=== PATIENT | female | born 1955 | race Caucasian/White ===

== ENCOUNTER 2024-01-26 15:33 | Emergency (ER) | payer MEDICARE, BC, SELFPAY ==
[2024-01-26 15:40] VITALS: BP 148/91
[2024-01-26 16:29] VITALS: BMI 29.6
--- NOTE | 2024-01-26 16:44 | EDRN ---
Ice applied to head. Lion Acosta HUNTING SALES LEADER in to see pt.
[2024-01-26 16:50] VITALS: BP 154/75
--- NOTE | 2024-01-26 16:51 | EDRN ---
Lion Acosta TAG METER OPERATOR in room and extensively cleansed wound w/ saline and is now stapling posterior head lac at this time. Pt to go to CT when stapling is done.
[2024-01-26 17:50] VITALS: BP 171/86
[2024-01-26] MEDS: ADACEL 0.5 ML IM (17:53)
--- NOTE | 2024-01-26 20:04 | ED.SKININJ ---
HPI-Injury
General
Chief Complaint: Head Injury
Source: patient
Exam Limitations: none
Time Seen by Provider: 01/26/24 16:02
Nursing documentation reviewed up to this point in time: agreed with
Travel History
Have you had any contact with someone who has COVID-19?: No
Do you have any symptoms of coronavirus? Fever > 100 degrees, chills, cough, shortness of breath, sore throat, loss of taste or smell, muscle aches, or headache?: No
History of Present Illness-Injury
Is this injury a work related problem?: No
Is pt an associate of [facility]?: No
Initial Injury comments:
Patient states she slipped on floor and fell. Hit back of head on granite surface. No LOC. Sustained lac to posterior scalp. Injury occurred jsut DESIGN MANAGER. Brought to ED by spouse for eval
Past History
Past History
ED Past Medical History: None
Review of Systems
Review of Systems
Allergies reviewed?: Yes
All Other Systems: ROS reviewed and negative except as documented in HPI and ROS
Constitutional: Reports no symptoms
EENT: Reports no symptoms
Respiratory: Reports no symptoms
Cardiac: Reports no symptoms
ABD/GI: Reports no symptoms
: Reports no symptoms
Musculoskeletal: Reports no symptoms
Skin: Reports other (Laceration to posterior scalp.)
Neurological: Reports headache
Psychiatric: Reports no symptoms
Skin Exam
Laceration
Posterior Scalp:
Length in cm: 3
Orientation: horizontal
Type of Laceration: simple
Any active bleeding?: low grade venous oozing
Distal skin color and temperature: normal-warm & good color
Normal distal neurovascular exam: Yes
Range of motion: full
Phy Exam
General Physical Exam
General Presentation: well appearing and no apparent distress
General age: appears stated age
General Skin: warm and dry
General Habitus: normal
General Mental: alert
Eye Exam
Eye Exam: EOMI and conjunctiva normal
Neurological Exam
Neurological Exam: alert, oriented x3, CN II-XII intact, no motor deficits, no sensory deficits and speech normal
Jaclyn Coma Scale
Eye Opening: Spontaneous
Verbal Response: Oriented
Motor Response: Obeys Commands
GCS Total Score: 15
Musculoskeletal Exam
Musculoskeletal Exam: full ROM and neuro vasc intact
Skin Exam
Skin Exam: normal color, warm/dry and no rash
Psychiatric Exam
Psychiatric Exam: normal mood/affect
Course
Orders/Labs/Results
Orders:
Orders
01/26/24 15:46
CT Cervical Spine W/o Iv Contr Urgent
Reason For Exam: fall
CT Head W/o Iv Contrast Urgent
Comment:
Reason For Exam: fall
01/26/24 17:34
Tetanus/Diphth/Acelpertussis [Adacel] 0.5 ml IM .ONCE ONE
Vital Signs
Initial and Last Documented VS:
Initial Vital Signs
Temp Pulse Resp BP Pulse Ox
97.9 F 67 16 148/91 98
01/26/24 15:40 01/26/24 15:40 01/26/24 15:40 01/26/24 15:40 01/26/24 15:40
Last Documented Vital Signs
Temp Pulse Resp BP Pulse Ox
97.9 F 65 16 171/86 97
01/26/24 15:40 01/26/24 17:50 01/26/24 17:50 01/26/24 17:50 01/26/24 17:50
Procedures
Laceration Closure
Posterior Scalp:
Status of Wound: clean
Description of Wound Edges: sharp
Preparation: cleaned with saline
Anesthesia: 1% Lidocaine
Revision/Debridement: routine- no revision
Wound exploration: explored to base- no FB
Type of Closure: single layer closure
Skin Closure Material: skin saba
*Radiology
Radiology exam reviewed: radiology read reviewed
*Pulse Oximetry
Patient hypoxic: no
*Critical Care Note
Total Time (30-74mins, 75-104mins- exclusive of procedures): Not Applicable
ED Attending Note
-
Portions of this chart may have been created with voice recognition software.� Occasional wrong word or��sound alike� substitutions may have occurred due to the inherent limitations of voice recognition software.
Discharge Plan
Departure
Patient Disposition: Home (Routine Discharge)
Date of Disposition: 01/26/24
Time of Disposition: 17:27
Patient with high blood pressure during this ER visit?: No
Condition: Good
Covid-19: Not Applicable
Discharge Problem:
Head injury, Laceration of scalp
Instructions: Head Injury in Adults (DC), Laceration Repair With [place] (DC)
Referrals:
Silvia Hassan RELEASE ENGINEER [Family Provider] - Follow up in 1 week (Saba can be removed in 7-10 days.)
Interventions
Interventions:
*Risk Screen - Suicide Last Done: 01/26/24 15:40
*General Assessment Last Done: 01/26/24 15:40
*Neglect/Abuse Screening Last Done: 01/26/24 15:40
ED- Fall Risk Assessment Last Done: 01/26/24 16:33
*ED COVID-19 Vaccine History Last Done: 01/26/24 16:33
*Nursing Disposition Last Done: 01/26/24 18:05
ED- Neurological Assessment Last Done: 01/26/24 16:33
ED-Skin Assessment Last Done: 01/26/24 16:33
Discharge Date and Time
Discharge Date/Time: 01/26/24 18:06
Print Language: PASHTO
== END 2024-01-26 18:06 | disposition home or self-care (01) ==
LOC: EMR 15:33
PROVIDERS: EMERGENCY PHYSICIAN Emergency Medicine; FAMILY PHYSICIAN Nurse Practitioner Family
DX: S01.01XA Laceration without foreign body of scalp, initial encounter (principal); W01.0XXA Fall on same level from slipping, tripping and stumbling without subsequent striking against object, initial encounter; Z23 Encounter for immunization
CPT/HCPCS: 99284; 90471; 12002; 70450; 72125; 90715